=== PATIENT | male | born 1950 | race Caucasian/White ===

== ENCOUNTER 2021-12-27 16:51 | Emergency (ER) | payer MEDICARE ==
[2021-12-27 17:54] LABS: HEMOGLOBIN 12.9 gm/dl (14.0-17.5); RED BLOOD COUNT 4.32 M/UL (4.20-5.50)
[2021-12-27 18:13] LABS: BUN/CREATININE RATIO 26 (0-10)
[2021-12-27] MEDS ORDERED: HYDROCODON-ACE1 EAC4 PO ×2 (19:52→20:40)
== END 2021-12-27 20:50 | disposition home or self-care (01) ==
LOC: ER1 16:51
PROVIDERS: Emergency Medicine
DX: M25.561 Pain in right knee (principal); Z87.39 Personal history of other diseases of the musculoskeletal system and connective tissue; Z88.0 Allergy status to penicillin
CPT/HCPCS: 73564; 80053; 84550; 85025; 85652; 86140; 87040; 96374; 96375; 99283; J2270; J2405